=== PATIENT | male | born 1990 | race Two or more races ===

== ENCOUNTER 2020-04-27 11:35 | Emergency (ER) | payer OTHER, MEDICAID ==
[~2020-04-27] VITALS: Ht 160 cm; Wt 63.5 kg
[2020-04-27 11:41] VITALS: BP 111/78
--- NOTE | 2020-04-27 11:50 | NUR ---
SEEN AND EVALUATED BY DR. TANNER, PATIENT HAS NO COMPLAINTS AT THIS TIME. PD AT BEDSIDE.
--- NOTE | 2020-04-27 11:54 | NUR ---
Patient discharged to PD in stable condition. Written and verbal after care instructions given. Patient verbalizes understanding of instruction.
== END 2020-04-27 11:57 ==
LOC: ER 11:39
DX: Z00.00 Encounter for general adult medical examination without abnormal findings (principal)